=== PATIENT | male | born 1960 | race African-American/Black ===

== ENCOUNTER 2017-09-24 16:04 | Outpatient (CLI) | payer MEDICARE, MEDICAID ==
[2017-09-24 16:53] LABS: Anion Gap 15 mmol/L (10-20); BUN (Urea Nitrogen) 19 mg/dL (8.4-25.7); Calc. Creatinine Clearance 0 mL/min (70-130); Calcium 8.9 mg/dL (7.8-10.44); Carbon Dioxide 21 mmol/L (22-29); Chloride 112 mmol/L (98-107); Estimated GFR-MDRD 67; Glucose 102 mg/dL (70-105); Potassium 3.8 mmol/L (3.5-5.1); Sodium 144 mmol/L (136-145)
[2017-09-24 20:25] LABS: Hemoglobin A1c 5.6 % (4.0-6.0)
== END 2017-09-24 16:05 | disposition home or self-care (01) ==
LOC: MADLABBHPM 16:04
PROVIDERS: ATTEND Family Medicine
DX: E11.9 Type 2 diabetes mellitus without complications (principal); E03.9 Hypothyroidism, unspecified
CPT/HCPCS: 36415; 80048; 83036; 84443